=== PATIENT | female | born 1995 | race Caucasian/White ===

== ENCOUNTER 2019-01-11 09:34 | Day surgery (SDC) | payer BC, MEDICAID ==
[2019-01-10 14:42] LABS: CLARITY,URINE SLIGHTLY CLOUDY (Clear); COLOR,URINE STRAW (Yellow); GLUCOSE, URINE NEGATIVE (Neg); KETONES,URINE NEGATIVE (Neg); LEUKOCYTE ESTERASE ,URINE NEGATIVE (Neg); NITRITES, URINE NEGATIVE (Neg); OCCULT BLOOD,URINE TRACE-INTACT (Neg); PROTEIN,URINE NEGATIVE (Neg); UROBILINOGEN,URINE 0.2 E.U/dL (0.2-1.0)
[2019-01-10 14:43] LABS: BASOPHILS % (AUTO) 0.6 % (0-1); EOSINOPHILS # (AUTO) 0.1 X10'3 (0-0.9); EOSINOPHILS % (AUTO) 1.3 % (0-6); LYMPHOCYTES # (AUTO) 2.5 X10'3 (1.1-4.8); LYMPHOCYTES % (AUTO) 35.8 % (21-51); MEAN CORPUSCULAR HEMOGLOBIN 28.3 PG (27.0-31.0); MEAN CORPUSCULAR HGB CONC 34.7 g/dL (33.0-36.5); MEAN CORPUSCULAR VOLUME 81.7 FL (78-98); MONOCYTES # (AUTO) 0.5 X10'3 (0-0.9); MONOCYTES % (AUTO) 7.6 % (2-12); NEUTROPHILS # (AUTO) 3.8 X10'3 (1.8-7.7); NEUTROPHILS % (AUTO) 54.7 % (42-75); PRE OP HEMATOCRIT 39.6 % (35.0-45.0); PRE OP HEMOGLOBIN 13.7 g/dL (12.0-16.0); PRE OP PLATELET COUNT 332 X10'3 (140-440); RED BLOOD COUNT 4.85 X10'6 (4.20-5.60); RED CELL DISTRIBUTION WIDTH 13.1 % (11.5-14.5)
[2019-01-10 14:47] LABS: HCG SERUM QL NEGATIVE
[2019-01-10 14:51] LABS: ALBUMIN 3.7 G/DL (3.4-5.0); ALKALINE PHOSPHATASE 101 IU/L (46-116); BLOOD UREA NITROGEN 9 MG/DL (7-18); BUN/CREATININE RATIO 11.3 (6.6-38.0); CALCIUM 9.1 MG/DL (8.5-10.1); CHLORIDE 102 MMOL/L (99-107); PRE OP ALT 42 U/L (30-65); PRE OP ANION GAP 6 (8-16); PRE OP AST 19 U/L (10-37); PRE OP BILIRUB, TOTAL 0.4 MG/DL (0.0-1.0); PRE OP GLUCOSE 87 MG/DL (70-104); PRE OP POTASSIUM 3.9 MMOL/L (3.4-5.1); PRE OP SODIUM 137 MMOL/L (135-145); TOTAL CARBON DIOXIDE 28.6 MMOL/L (24-32); TOTAL PROTEIN 7.3 G/DL (6.4-8.2); eGFR 90 ML/MIN
[2019-01-10 14:54] LABS: UA COLLECTION TYPE CLN CATCH MIDSTREAM
[2019-01-10 15:05] LABS: SQUAMOUS EPITHELIAL CELL,UR FEW /LPF (FEW)
[2019-01-10 15:06] LABS: BACTERIA,URINE FEW /HPF (Neg); MUCUS STRANDS NONE SEEN /LPF (Neg); RBC,URINE NONE SEEN /HPF (0-2); WBC,URINE NONE SEEN /HPF (0-4)
[2019-01-10 15:41] LABS: PRE OP INR 1.1 INR; PRE OP PROTIME 10.8 SECONDS (9.0-12.0)
[~2019-01-11] VITALS: Ht 170.2 cm; Wt 133.4 kg
[2019-01-11] VITALS (9 sets, daily range): BP systolic 118–136; BP diastolic 65–80
[~2019-01-11 09:34] MED LIST: ACET-812 PO; OMEP20TA5 PO; ONDA4TAB6 PO; cefotetan 1gm/50ml IVPB 50 ML IV ONE; famotidine 20mg tablet PO ONE; ringers solution, lacted 1,000 ML IV SCH
[2019-01-11] MEDS ORDERED: ondansetron/PF 4mg/2ml inj IV ONE (10:45)
[2019-01-11] MEDS ORDERED: ondansetron/PF 4mg/2ml inj ONE (10:47)
[2019-01-11] MEDS ORDERED: BUPIVAcaine/PF 2.5 mg/ml (0.25%) 30ml vial ONE (12:06)
[2019-01-11] MEDS ORDERED: ceFAZolin 1000mg inj ONE (12:06)
[2019-01-11] MEDS ORDERED: sevoflurane 250ml liquid IH ONE (12:30)
[2019-01-11] MEDS ORDERED: midazolam 2 mg/2 ml injection ONE (12:34)
[2019-01-11] MEDS ORDERED: fentaNYL /PF 50mcg/ml 5ml ampule ONE (12:35)
[2019-01-11] MEDS ORDERED: rocuronium 10mg/ml inj IV ONE (12:45)
[2019-01-11] MEDS ORDERED: propofol inj 20 ML IV ONE (12:45)
[2019-01-11] MEDS ORDERED: LIDOcaine 2% (20mg/ml) 5ml vial ONE (12:45)
[2019-01-11] MEDS ORDERED: dexamethasone sod phosphate 4mg/ml inj. ONE (12:50)
[2019-01-11] MEDS ORDERED: ondansetron/PF 4mg/2ml inj IV PRN (13:20)
[2019-01-11] MEDS ORDERED: proCHLORperazine 10 MG/2 ml inj IV PRN (13:20)
[2019-01-11] MEDS ORDERED: morphine 4 MG/ML inj SYRINge IV PRN ×2 (13:20)
[2019-01-11] MEDS ORDERED: ringers solution, lacted 1,000 ML IV SCH (13:20)
[2019-01-11] MEDS ORDERED: meperidine/PF 25mg/ml syringe IV PRN ×2 (13:20)
[2019-01-11] MEDS ORDERED: neostigmine methylsulfate 1 MG/ML 10ml vial ONE (13:23)
[2019-01-11] MEDS ORDERED: glycopyrrolate 0.2mg/ml inj ONE (13:23)
--- NOTE | 2019-01-11 13:45 | NUR ---
Received from OR via , accompanied by Anesthesiologist DR OLVERA and report given by Anesthesiolgist. AWAKENS TO VOICE. VITALS STABLE. DRESSINGS DI. DEVON PAIN. ABD SOFT.
[2019-01-11] MEDS ORDERED: ketorolac trometh. 30mg/ml inj. ONE (13:55)
[2019-01-11] MEDS: meperidine/PF 25mg/ml syringe IV PRN ×2 (14:15→14:44)
--- NOTE | 2019-01-11 14:55 | NUR ---
AWAKE AND ORIENTED. VITALS STABLE. DRESSINGS DI. STATES PAIN IMPROVING. HOME WITH HER MOMAT THIS TIME.
== END 2019-01-11 14:55 | disposition home or self-care (01) ==
LOC: PAS 09:34
PROVIDERS: ATTEND Surgery
DX: K80.10 Calculus of gallbladder with chronic cholecystitis without obstruction (principal); K82.8 Other specified diseases of gallbladder; F32.9 Major depressive disorder, single episode, unspecified; F41.9 Anxiety disorder, unspecified; E66.9 Obesity, unspecified; F43.10 Post-traumatic stress disorder, unspecified; Z88.1 Allergy status to other antibiotic agents
CPT/HCPCS: 36415; 47562; 80053; 81001; 82948; 84703; 85025; 85610; 85730; 86885; 86900; 86901; J0690; J1100; J1885; J2001; J2175; J2250; J2405; J2704; J2710; J3010; J3490; J7120; A4315; A7000; J7040